=== PATIENT | female | born 1985 | race African-American/Black ===

== ENCOUNTER 2024-04-19 14:39 | Emergency (ER) | payer MEDICAID ==
[~2024-04-19] VITALS: Ht 167.6 cm; Wt 100.0 kg
[2024-04-19 14:53] VITALS: O2SAT 99
[2024-04-19] MEDS ORDERED: VANCOMYCIN 1G PREMIX 200 ML IV SCH (18:00)
[2024-04-19] MEDS: CEFTRIAXONE 1GM/50ML 50 ML IV ONE (18:56)
[2024-04-19] MEDS: TETANUS, DIPHTHERIA, PERTUSSIS VAC/PF 0.5ML (>10YR OLD) IM ONE (18:57)
[2024-04-19] MEDS: LIDOCAINE HCL 1% 20ML VIAL INFIL ONE (20:00)
[2024-04-19 21:23] LABS: BASOPHILS % 0.3 % (0.0-2.0); EOSINOPHILS % 0.1 % (0.0-5.0); HEMATOCRIT. 36.4 % (36.0-48.0); HEMOGLOBIN. 12.1 g/dL (12.0-16.0); LYMPHOCYTES % 11.5 % (20.0-50.0); MEAN CORPUSCULAR HEMOGLOBIN 26.8 pg (28.0-32.0); MEAN CORPUSCULAR HGB CONC 33.3 g/dL (31.0-37.0); MEAN CORPUSCULAR VOLUME 80.5 fL (81.0-99.0); MEAN PLATELET VOLUME 8.5 fl (7.4-10.4); MONOCYTES % 3.7 % (2.0-8.0); NEUTROPHILS % 84.4 % (40.0-76.0); PLATELET 260 x1000/uL (130-400); RED BLOOD CELL COUNT 4.52 mill/uL (4.2-5.4); RED CELL DISTRIBUTION WIDTH 15.2 % (11.6-14.6); WHITE BLOOD COUNT 9.5 x1000/uL (4.5-11.0)
[2024-04-19 21:54] LABS: CHLORIDE 106 mEq/L (98-107); POTASSIUM 3.9 mEq/L (3.5-5.1); SODIUM 139 mEq/L (136-145)
[2024-04-19 21:55] LABS: CARBON DIOXIDE 22 mEq/L (21-32)
[2024-04-19 21:56] LABS: CALCIUM 8.8 mg/dL (8.7-10.4)
[2024-04-19 22:00] LABS: CREATININE 0.9 mg/dL (0.6-1.0); GLUCOSE 107 mg/dL (70-105)
[2024-04-19 22:01] LABS: UREA NITROGEN BLOOD 9 mg/dL (9-23)
[2024-04-19 22:10] LABS: HCG SCREEN NEGATIVE
[2024-04-19] MEDS: VANCOMYCIN 1000MG/250ML IV NR (23:50)
[2024-04-20] MEDS ORDERED: DOXY100C5 MT (00:46)
[2024-04-20] MEDS ORDERED: CEFP100S5 MT (00:46)
[2024-04-20] MEDS: MAGNESIUM/ALUMINUM HYDROXIDE/SIMETHICONE 30ML UDC PO ONE (01:36)
[2024-04-20 01:37] VITALS: BP 131/77; PULSE 78; RESP 18; TEMP 36.6; O2SAT 99
== END 2024-04-20 01:39 | disposition home or self-care (01) ==
LOC: ER 14:39
DX: S81.012A Laceration without foreign body, left knee, initial encounter (principal); F84.0 Autistic disorder; W18.30XA Fall on same level, unspecified, initial encounter; Y93.89 Activity, other specified; Y92.89 Other specified places as the place of occurrence of the external cause; Y99.8 Other external cause status
CPT/HCPCS: 80048; 84703; 83690; 85025; 85610; 86850; 86900; 86901; 36415; 73562; 73700; 90715; 12004; 96368; 90471; 96365; 96366; 99291; J0696; J3370; Z7610 ×3

== ENCOUNTER 2024-07-06 15:39 | Emergency (ER) | payer MEDICAID ==
[~2024-07-06] VITALS: Ht 172.7 cm; Wt 121.0 kg
[~2024-07-06 15:39] MED LIST: CEFP100S5 MT; DOXY100C5 MT
[2024-07-06 16:14] VITALS: O2SAT 100
[2024-07-06 17:05] VITALS: BP 140/96; PULSE 98; RESP 18; TEMP 36.9; O2SAT 100
== END 2024-07-06 17:05 | disposition home or self-care (01) ==
LOC: ER 15:39
DX: S81.012D Laceration without foreign body, left knee, subsequent encounter (principal); I10 Essential (primary) hypertension; F84.0 Autistic disorder; X58.XXXD Exposure to other specified factors, subsequent encounter
CPT/HCPCS: 99281; 99282